=== PATIENT | female | born 1990 | race Caucasian/White ===

== ENCOUNTER 2016-11-28 18:00 | Emergency (ER) | payer MEDICAID ==
[~2016-11-28] VITALS: Ht 162.6 cm; Wt 79.4 kg
[~2016-11-28 18:00] MED LIST: CIPRO 500MG TA500 MG PO; NOMEDS *; PERCOCET 650 MG1 TAB PO; PRENATAL PLUS1 TA1; TRAMADOL50 M1 PO; ZANTAC 150MG T150 MG PO
--- NOTE | 2016-11-28 19:44 | Emergency Room Report ---
History of Present Illness Time Seen by 182 Presenting Problem in Triage Pt arrived:Walked Presenting Problem:brought in per [employer] per medical clearence. Pt left AMA approx 5 minutes prior when brought for heroin overdose. Onset of symptoms date/time:/ or onset unknown for:MEDICAL HX UNKNOWN Treatment Prior to Arrival: NARCAN PER EMS RETAIL DEPARTMENT RESET Provided by:[facility] [employer] Sepsis Risk Assessment: Temp: 98.1 B/P: MAP: Pulse: 89 Resp: 20 Recent fever? N Clinical Suspician of Infection? N Mental Status: 1 - Regular (Normal Baseline) Sepsis Risk:Low Sepsis Risk Have you (or family members/close friends) recently traveled outside the [place]? N If Yes, where/when: Have you had exposure to infectious disease within the past month? N TB? Other? Specify: Comment The patient is brought in by police for medical clearance. The patient had an apparent overdose. Bystanders apparently called 911 because she was unresponsive and not breathing. EMS arrived and administered Narcan and she was revived. She was brought to the emergency room, pulled her IV out and walked out of the emergency room immediately after arriving here. She was apparently caught by police in the parking lot and had outstanding warrants and they arrested her and now bring her in for medical clearance. She says that she did not willingly or intentionally do any drugs. She says she just got out of rehab a month ago and has been clean. She says that police told her they found needles at the scene. She says other people were there and she does not know whether she was administered drugs without her knowledge. She says she feels terrible and does not know why. She is shaky and feels like she is out of her body. She wants to know why. She says she has not been ill except for a couple of episodes of vomiting a couple of days ago. She is on medications for bipolar disorder. ALLERGIES Coded Allergies: MDX - Hydrocodone (From LORTAB) (Severe, C-[id number]-DMIO/THROAT 11/28/16) Home Medications Active Scripts TRAMADOL HCL (Tramadol) 50 MG PO TID #90 TAB Ref 3 Prov: 04/30/15 (Jose D LOREDO, Syd) History Medical History General CAD? No Angina: No [place]: No Hypertension? No Hyperlipidemia? No CHF? No DVT? No PE? No COPD? No Asthma? Yes Anemia? No GERD? No Gastric ulcers? No GI Bleed? No Hernia? No Thyroid Problems? No Hypothyroidism? No CVA? No Seizures? No Diabetes? No Renal Insuffiency? No End Stage Renal Disease? No UTI? No Stones? No BPH? No GB Disease: Yes Nephritic Syndrome? No Asplenia? No Hepatitis? No Sickle Cell Disease? No Arthritis? No Migraines? No Cataracts? No Glaucoma? No MRSA? No HIV? No TB? No Anxiety? Yes Depression? Yes Cancer? No More? 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 Ago Social History Smoking Hx Smoker: Current Every Day Smoker Tobacco: Yes Type Cigarettes Packs/day < 1 Pack Alcohol Alcohol: No (Syd Jeffery MD) Review of Systems All Other Systems Reviewed and Negative Constitutional see HPI, denies fever Respiratory denies cough, denies shortness of breath Cardiovascular denies chest pain Gastrointestinal denies abdominal pain, denies diarrhea, vomiting Psychiatric/Neurological other (shaking) (Syd Jeffery MD) Physical Exam Vital Signs Vital Signs Date Time Temp Pulse Resp B/P Pulse O2 O2 Flow FiO2 Ox Delivery Rate 11/28 2052 87 20 138/69 98 11/29 1951 98.1 89 20 112/60 95 11/29 1811 98.1 89 20 97 General Appearance anxious, tremulous Eye Exam - bilateral eye normal exam, bilateral eye PERRL, bilateral eye EOMI Ear, Nose, Throat hearing grossly normal, normal ENT inspection Neck normal inspection, non-tender, supple, full range of motion Respiratory Status Yes: trachea midline, chest symmetrical, non tender chest. No: respiratory distress. Lung Sounds bilateral: normal breath sounds, lungs clear. 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 No Results/Orders Laboratory Tests 11/28/162124: Opiates Screen POSITIVE H, Urine Methadone Screen NEGATIVE, Barbiturates NEGATIVE, Phencyclidine Screen NEGATIVE, Amphetamines Screen NEGATIVE, Benzodiazepines Screen POSITIVE H, Cocaine Screen NEGATIVE, Marijuana (THC) Screen POSITIVE H, Urine Color YELLOW, Urine Appearance SL CLOUDY, Urine pH 6.0 , Ur Specific [place] >= 1.030, Urine Protein 1+ H, Urine Ketones NEGATIVE, Urine Blood NEGATIVE, Urine Nitrate NEGATIVE, Urine Bilirubin NEGATIVE, Urine Urobilinogen 0.2, Ur Leukocyte Esterase NEGATIVE, Urine WBC 3-5, Ur Squamous Epith Cells 3-5, Amorphous Sediment TRACE, Urine Mucus 4+, Urine Glucose NEGATIVE 11/28/161999: Sodium 139, Potassium 4.3, Chloride 105, Carbon Dioxide 31, BUN 8, Creatinine 0.8, Estimated Creat Clear 132, Estimated GFR (MDRD) 86, Glucose 115 H, Calcium 8.8, Total Bilirubin 0.2, AST 56 H, ALT 106 H, Alkaline Phosphatase 105, Total Protein 7.3, Albumin 3.2 L, Globulin 4.1 H, Albumin/Globulin Ratio 0.8 L, WBC 8.9, RBC 4.63, Hgb 13.8, Hct 41.0, MCV 88.6, RDW 13.2, Plt Count 222, MPV 7.4, Gran % 77.1, Gran # 6.8, Lymphocytes % 16.5, Monocytes % 4.7, Eosinophils % 1.3, Basophils % 0.4, Lymphocytes # 1.5, Monocytes # 0.4, Eosinophils # 0.1, Basophils # 0.0, PUBS MCHC 33.7, MCH 29.9, Salicylates 2.2 L, Acetaminophen 0 L, Alcohols 0 11/28/161824: Sodium Cancelled, Potassium Cancelled, Chloride Cancelled, Carbon Dioxide Cancelled, BUN Cancelled, Creatinine Cancelled, Estimated Creat Clear Cancelled, Estimated GFR (MDRD) Cancelled, Glucose Cancelled, Calcium Cancelled, Total Bilirubin Cancelled, AST Cancelled, ALT Cancelled, Alkaline Phosphatase Cancelled, Total Protein Cancelled, Albumin Cancelled, Globulin Cancelled, Albumin/Globulin Ratio Cancelled, WBC Cancelled, RBC Cancelled, Hgb Cancelled, Hct Cancelled, MCV Cancelled, RDW Cancelled, Plt Count Cancelled, Gran % Cancelled, Gran # Cancelled, Lymphocytes % Cancelled, Eosinophils % Cancelled, Basophils % Cancelled, Lymphocytes # Cancelled, Eosinophils # Cancelled, Basophils # Cancelled, PUBS MCHC Cancelled, MCH Cancelled Current Medication Orders Sig/Tricia Start time Last Medication Dose Route Stop Time Status Admin Sodium Chloride 10 ML PRN PRN 11/28 1944 AC IV 11/29 1938 Sodium Chloride 10 ML PRN PRN 11/28 183 AC IV 11/29 182 Orders Procedure Date/time Status URINE 11/29 1939 Complete IV SALINE LOCK 11/28 1938 Active URINALYSIS/COMPLETE 11/28 1938 Complete SALICYLATE 11/28 1938 Complete DRUG ABUSE SCREEN (TRIAGE) 11/28 1938 Complete CBC WITH AUTO DIFF 11/28 1938 Complete CHEM 12 PROFILE 11/28 1938 Complete ALCOHOL 11/28 1938 Complete Acetaminophen 11/28 1938 Complete 12 LEAD EKG-MELANIA (INITIAL) 11/28 1824 Active ELECTROCARDIOGRAM REQUEST 11/28 1824 Active Progress - 8:30 PM: At shift change, I have discussed the patient with Dr. Brown, who will assume care of the patient at this time. I have discussed all clinical information including history, physical and diagnostic study results. Preliminary diagnoses based on information available at this point have been recorded by me. Controlled substance administration and critical care statement are also preliminary, as of the time of handoff. (Syd Jeffery MD) Departure Departure Condition STABLE Referrals Jaspreet Brown MD (Family) ED Critical Care Critical Care No (Syd Jeffery MD) Departure Time of Disposition 2150 Disposition DC Home or Self Care(routine) Clinical Impression Primary Impression: Opiate overdose Qualifiers: Encounter type: initial encounter Injury intent: accidental or unintentional Qualified Code: T40.601A - Poisoning by unspecified narcotics, accidental (unintentional), initial encounter Patient Instructions DI for Drug Abuse and Drug Addiction Additional Instructions please see pcp for follow up Discharge Counseling Counseled pt/family regarding diagnosis, test results, follow up needs (Rosalind Brown MD) at 203 at [phone]
[2016-11-28 20:14] LABS: LYMPH # 1.5 K/mm3 (0.7-4.5); LYMPH % 16.5 % (10-50.0)
[2016-11-28 20:15] LABS: HEMOGLOBIN 13.8 g/dL (12.2-16.2)
[2016-11-28 21:44] LABS: AMPHETAMINES/METAMPHETAMINES NEGATIVE ng/mL (<1000); URINE BILIRUBIN - DIPSTICK NEGATIVE (NEG); URINE BLOOD NEGATIVE (NEG)
[2016-11-28 22:39] VITALS: BP 107/50
== END 2016-11-28 22:39 | disposition home or self-care (01) ==
LOC: ER 18:00
PROVIDERS: Emergency Medicine
DX: T40.601A Poisoning by unspecified narcotics, accidental (unintentional), initial encounter (principal); Z88.5 Allergy status to narcotic agent; F41.8 Other specified anxiety disorders; J45.909 Unspecified asthma, uncomplicated; Z72.0 Tobacco use